=== PATIENT | male | born 1970 | race Caucasian/White ===

== ENCOUNTER 2020-01-25 00:38 | Emergency (ER) | payer MEDICAID, OTHER ==
[~2020-01-25] VITALS: Ht 182.9 cm; Wt 90.7 kg
--- NOTE | 2020-01-25 00:40 | NUR ---
C/O "I FEEL LIKE I CAN'T BREATH, I FEEL LIKE MY LIFE FORCE WAS TAKEN OUT OF ME." PT APPEARS WILLEM ANXIOUS, HYPERVENTILATING.,PT AAOX4, -SOB, NAD NOTED, VSS, PENDING MD GARCIA
[2020-01-25] MEDS ORDERED: LORAZEPAM INJ 2 MG/ML VIAL ONE (00:53)
[2020-01-25] MEDS: LORAZEPAM INJ 2 MG/ML VIAL IV ONE (01:07)
[2020-01-25] MEDS: IV NS 0.9% 1,000 ML BAG IV ONE (01:07)
[2020-01-25 01:15] LABS: BASOPHILS % (AUTO) 0.4 % (0.0-2.0); EOSINOPHILS % (AUTO) 0.1 % (0.0-6.0); HEMATOCRIT 47 % (39-51); HEMOGLOBIN 16.1 g/dL (13.5-17.5); LYMPHOCYTES # (AUTO) 2.2 /CMM (0.8-4.8); LYMPHOCYTES % (AUTO) 25.1 % (20.0-44.0); MEAN CORPUSCULAR HGB CONC 35 g/dl (31.0-36.0); MEAN CORPUSCULAR VOLUME 98 fL (80-96); MONOCYTES # (AUTO) 0.7 /CMM (0.1-1.30); MONOCYTES % (AUTO) 7.4 % (2.0-12.0); PLATELET COUNT (AUTO) 258 /CMM (150-450); RED BLOOD CELL COUNT(AUTO) 4.77 MIL/uL (4.5-6.0)
[2020-01-25 01:20] LABS: CALCIUM, SERUM 9.2 mg/dL (8.5-10.1); CREATININE 1.3 mg/dL (0.6-1.3); POTASSIUM 3.3 mmol/L (3.5-5.1)
[2020-01-25 01:26] LABS: BILIRUBIN,DIRECT 0.2 mg/dL (0.0-0.2); BILIRUBIN,TOTAL 0.9 mg/dL (0.2-1.0)
--- NOTE | 2020-01-25 02:05 | NUR ---
Patient discharged to home in stable condition. Written and verbal after care instructions given. Patient verbalizes understanding of instruction. IV removed. Catheter intact and site benign. Pressure and 4x4 applied to site. No bleeding noted.
[2020-01-25 03:44] VITALS: BP 127/65
== END 2020-01-25 02:05 | disposition home or self-care (01) ==
LOC: ER 00:40
DX: F41.1 Generalized anxiety disorder (principal)
CPT/HCPCS: 36415; 80048; 80076; 85025; 96361; 96374; 99283; J2060; J7030